=== PATIENT | female | born 1970 ===

== ENCOUNTER 2021-02-16 23:48 | Emergency (ER) | payer SELFPAY ==
[2021-02-17] MEDS ORDERED: ACETAMINOPHEN 325 MG TAB PO ONE (00:57)
[2021-02-17] MEDS ORDERED: ACETAMINOPHEN 500 MG TAB ONE (01:28)
--- NOTE | 2021-02-17 01:38 | XRay Report ---
Left shoulder 3 views INDICATION: Left shoulder pain following injury IMPRESSION: No acute fracture or subluxation. Signer Name: George White MD Signed: 02/17/2021 1:33 AM Workstation Name: [id number]
--- NOTE | 2021-02-17 01:45 | Cat Scan Report ---
CT head without contrast INDICATION : Headache following fall TECHNIQUE: Axial imaging performed from the skull apex through the skull base without the use of con trast. All CT examinations performed at this facility utilize dose modulation, iterative reconstruct ion or weight-based dosing, when appropriate, to reduce radiation dose to as low as reasonably achiev able. COMPARISON: None FINDINGS: No acute intracranial hemorrhage or parenchymal abnormality. Ventricles are normal in si ze and appear symmetric. Soft tissues including the orbits appear normal. Empty sella appearance. N o acute osseous abnormality. Sinuses and mastoid air cells are clear. IMPRESSION: No acute abnormality. Signer Name: George White MD Signed: 02/17/2021 1:40 AM Workstation Name: [id number]
[2021-02-17] MEDS ORDERED: IBUPROFEN 600 MG TAB PO ONE (02:37)
[2021-02-17] MEDS ORDERED: CYCLOBENZAPRINE 10 MG TAB PO ONE (02:37)
--- NOTE | 2021-02-17 02:42 | Emergency Department Report ---
ED Head Trauma HPI - General Chief complaint: Head Injury Stated complaint: NECK PAIN Source: patient Mode of arrival: Ambulatory Limitations: No Limitations - History of Present Illness Initial comments: Patient is a 50-year-old female with a history of heu-ekncvda-xykmnwhfi diabetes who presents to the ED with complaint of acute onset persistent severe headache and posterior scalp pain and severe left shoulder pain after she slipped and fell at home on the floor hitting the back of her head and left shoulder on the concrete floor about 2 hours ago. Patient states that she got dazed and startled after the fall, and has had intermittent blurry vision since the incident occurred. Patient denies loss of consciousness, seizures, syncope, nausea and vomiting, neck pain, chest pain, shortness of breath, back pain, numbness and tingling or weakness of upper and lower extremities bilaterally, vision loss, speech changes, dental injuries or nosebleed. MD Complaint: head injury, other (headache, left shoulder pain) -: Sudden, hour(s) (2) Arrival Conditions: Negative: C-spine immobilization present, spinal board immobilization present Mechanism of Injury: mechanical fall Location: occipital Loss of Consciousness: no Previous Trauma to this Area: No Place: home Radiation: none Severity: severe Severity scale (0 -10): 7 Quality: sharp, aching Consistency: constant Provoking factors: none known Other Injuries: LUE (Left shoulder pain) Associated Symptoms: denies other symptoms. denies: confusion, amnesia, repetitive questioning, vision changes, nausea, vomiting, vertigo, syncope, numbness, weakness, tingling, neck pain - Related Data Previous Rx's Medication Instructions Recorded Last Taken Type Baclofen 20 mg PO Q12H PRN #20 tablet 02/17/21 Unknown Rx Ibuprofen [Motrin] 800 mg PO Q8HR PRN #30 tablet 02/17/21 Unknown Rx Allergies/Adverse reactions: Allergies Allergy/AdvReac Type Severity Reaction Status Date / Time No Known Allergies Allergy Unverified 02/17/21 00:56 ED Review of Systems ROS: Stated complaint: NECK PAIN Other details as noted in HPI Constitutional: denies: chills, fever Eyes: denies: eye pain, eye discharge, vision change ENT: other (Posterior scalp pain). denies: ear pain, throat pain Respiratory: denies: cough, shortness of breath, wheezing Cardiovascular: denies: chest pain, palpitations Endocrine: no symptoms reported Gastrointestinal: denies: abdominal pain, nausea, diarrhea Genitourinary: denies: urgency, dysuria, discharge Musculoskeletal: arthralgia (Severe left shoulder pain). denies: back pain, joint swelling Skin: denies: rash, lesions Neurological: headache. denies: weakness, paresthesias Psychiatric: denies: anxiety, depression Hematological/Lymphatic: denies: easy bleeding, easy bruising ED Past Medical Hx - Past Medical History Previous Medical History?: Yes Hx Diabetes: Yes Hx Dementia: Yes - Surgical History Past Surgical History?: No - Social History Smoking Status: Never Smoker Substance Use Type: None - Medications Home Medications: Home Medications Medication Instructions Recorded Confirmed Last Taken Type Baclofen 20 mg PO Q12H PRN #20 tablet 02/17/21 Unknown Rx Ibuprofen [Motrin] 800 mg PO Q8HR PRN #30 tablet 02/17/21 Unknown Rx ED Physical Exam - General Limitations: No Limitations General appearance: alert, in no apparent distress - Head Head exam: Present: other (Palpable localized posterior scalp tenderness) - Eye Eye exam: Present: normal appearance, PERRL, EOMI - ENT ENT exam: Present: normal exam, normal orophraynx, mucous membranes moist, TM's normal bilaterally, normal external ear exam - Neck Neck exam: Present: normal inspection, full ROM. Absent: tenderness - Respiratory Respiratory exam: Present: normal lung sounds bilaterally. Absent: respiratory distress, wheezes, rales, stridor, chest wall tenderness, accessory muscle use, prolonged expiratory - Cardiovascular Cardiovascular Exam: Present: normal rhythm, tachycardia, normal heart sounds. Absent: systolic murmur, diastolic murmur, rubs, gallop - GI/Abdominal GI/Abdominal exam: Present: soft, normal bowel sounds. Absent: distended, tenderness, guarding, rebound, hyperactive bowel sounds, organomegaly, pulsatile mass, hernia - Extremities Exam Extremities exam: Present: normal inspection, tenderness (Palpable left shoulder tenderness with limited range of motion due to pain), normal capillary refill. Absent: full ROM (Limited range of motion of left shoulder due to pain), pedal edema, joint swelling, calf tenderness - Back Exam Back exam: Present: normal inspection, full ROM, vertebral tenderness. Absent: tenderness, CVA tenderness (R), CVA tenderness (L), muscle spasm, paraspinal tenderness - Neurological Exam Neurological exam: Present: alert, oriented X3, CN II-XII intact, normal gait, reflexes normal - Psychiatric Psychiatric exam: Present: normal affect, normal mood - Skin Skin exam: Present: warm, dry, intact, normal color. Absent: rash ED Course Vital Signs 02/17/21 00:50 Temperature 98.4 F Pulse Rate 102 H Respiratory 16 Rate O2 Sat by Pulse 100 Oximetry - Radiology Data Radiology results: report reviewed, image reviewed [address] [address] XRay Report Signed Patient: YESSICA MELISSA MR#: [id number] : 1970 Acct:[id number] Age/Sex: 50 / F ADM Date: 02/16/21 Loc: ED Attending Dr: Ordering Physician: ROSA ORTA MD Date of Service: 02/17/21 Procedure(s): XR shoulder 2+V LT Accession Number(s): [id number] cc: ED MD YOU Fluoro Time In Minutes: Left shoulder 3 views INDICATION: Left shoulder pain following injury IMPRESSION: No acute fracture or subluxation. Signer Name: George White MD Signed: 02/17/2021 1:33 AM Workstation Name: [id number] Transcribed By: BC Dictated By: George White MD Electronically Authenticated By: George White MD Signed Date/Time: 02/17/21132 DD/ 1 TD/TT: [address] [address] Cat Scan Report Signed Patient: YESSICA MELISSA MR#: [id number] : 1970 Acct:[id number] Age/Sex: 50 / F ADM Date: 02/16/21 Loc: ED Attending Dr: Ordering Physician: ROSA ORTA MD Date of Service: 02/17/21 Procedure(s): CT head/brain wo con Accession Number(s): [id number] cc: ROSA ORTA MD CT head without contrast INDICATION : Headache following fall TECHNIQUE: Axial imaging performed from the skull apex through the skull base without the use of contrast. All CT examinations performed at this facility utilize dose modulation, iterative reconstruction or weight-based dosing, when appropriate, to reduce radiation dose to as low as reasonably achievable. COMPARISON: None FINDINGS: No acute intracranial hemorrhage or parenchymal abnormality. Ventricles are normal in size and appear symmetric. Soft tissues including the orbits appear normal. Empty sella appearance. No acute osseous abnormality. Sinuses and mastoid air cells are clear. IMPRESSION: No acute abnormality. Signer Name: George White MD Signed: 02/17/2021 1:40 AM Workstation Name: [id number] Transcribed By: BC Dictated By: George White MD Electronically Authenticated By: George White MD Signed Date/Time: 02/17/21139 DD/ 0138 TD/TT: - Medical Decision Making This is a 50-year-old female with a history of plu-xxofnlv-fqhfdlhgo diabetes who presents to the ED with complaint of acute onset persistent severe headache and posterior scalp pain and severe left shoulder pain after she slipped and fell at home on the floor hitting the back of her head and left shoulder on the concrete floor about 2 hours ago. Patient states that she got dazed and startled after the fall, and has had intermittent blurry vision since the incident occurred. In the ED, patient is alert and oriented x3 and is not in any distress but appears to be in pain. Patient is afebrile but tachycardic in triage. Head CT scan without contrast showed no acute intracranial abnormalities or hemorrhage. Left shoulder x-ray shows no acute fractures or subluxations. Patient was treated for pain in the ED and on reevaluation, patient's pain is well controlled medications. Patient will discharge home on pain medications and advised to follow-up with her primary care physician in 5 to 7 days for reevaluation. Patient was advised return to the ED immediately if her symptoms get worse. - Differential Diagnosis Shoulder fracture; scalp contusion; head injury; shoulder sprain - Core Measures AMI Core Measures Followed: No Measure Exclusions: not indicated - NEXUS Criteria Focal neurological deficit present: No Midline spinal tenderness present: No Altered level of consciousness: No Intoxication present: No Distracting injury present: No NEXUS results: C-Spine can be cleared clinically by these results. Imaging is not required. Critical care attestation.: If time is entered above; I have spent that time in minutes in the direct care of this critically ill patient, excluding procedure time. ED Disposition Clinical Impression: Acute post-traumatic headache, not intractable Contusion of scalp Qualifiers: Encounter type: initial encounter Qualified Code(s): S00.03XA - Contusion of scalp, initial encounter Sprain of left shoulder Qualifiers: Encounter type: initial encounter Shoulder sprain type: unspecified sprain Qualified Code(s): S43.402A - Unspecified sprain of left shoulder joint, initial encounter Disposition: TO HOME OR SELFCARE Is pt being admited?: No Does the pt Need Aspirin: No Condition: Stable Instructions: Facial or Scalp Contusion, [id number], Post-Concussion Syndrome, [id number], Tension Headache, Adult, [id number] Additional Instructions: La tomografa computarizada de la sabrina sin contraste no mostr alteraciones intracraneales agudas ni hemorragia. La radiografa de hombro darlene no mostr fracturas agudas ni subluxaciones. Todas elsa lesiones son lesiones musculoesquelticas despus de la cada. Por lo tanto, tome los medicamentos con alimentos, isaac muchos lquidos y faustino un seguimiento con monroe mdico de atencin primaria en 5 a 7 corona para emil reevaluacin. Regrese al servicio de urgencias de inmediato si los sntomas empeoran, especialmente si presenta nuseas y vmitos intratables, dolor de sabrina intenso, sncope, convulsiones, prdida del conocimiento, prdida de visin, prdida de audicin, dificultad para respirar o debilidad de las extremidades superiores e inferiores. Prescriptions: Baclofen 20 mg PO Q12H PRN #20 tablet PRN Reason: espasmo muscular Ibuprofen [Motrin] 800 mg PO Q8HR PRN #30 tablet PRN Reason: Dolor bravo Referrals: [facility] [Provider Group] - 3-5 Days Time of Disposition: 02:47 Print Language: IRAQI
== END 2021-02-17 03:30 | disposition home or self-care (01) ==
LOC: ED 23:48
DX: S43.402A Unspecified sprain of left shoulder joint, initial encounter (principal); S00.03XA Contusion of scalp, initial encounter; G44.319 Acute post-traumatic headache, not intractable; E11.9 Type 2 diabetes mellitus without complications; F03.90 Unspecified dementia, unspecified severity, without behavioral disturbance, psychotic disturbance, mood disturbance, and anxiety; Z79.899 Other long term (current) drug therapy; W17.89XA Other fall from one level to another, initial encounter; Y93.89 Activity, other specified; Y92.009 Unspecified place in unspecified non-institutional (private) residence as the place of occurrence of the external cause; Y99.8 Other external cause status
CPT/HCPCS: 70450